=== PATIENT | female | born 1985 | race Caucasian/White ===

== ENCOUNTER → 2020-09-19 16:38 | Outpatient (CLI) | payer OTHER, SELFPAY ==
[2020-09-19 17:57] LABS: hCG Titer Quant., Serum 1784 mIU/mL (1-3)
== END ==
DX: R79.9 Abnormal finding of blood chemistry, unspecified (principal)
CPT/HCPCS: 36415; 84702

== ENCOUNTER 2020-09-20 11:12 | Emergency (ER) | payer OTHER, SELFPAY ==
[2020-09-20 11:14] VITALS: BP 133/76; PULSE 71; RESP 18; TEMP 36.5; O2SAT 100; BMI 20.5
--- NOTE | 2020-09-20 11:33 | US_ITS ---
STUDY: FIRST TRIMESTER OBSTETRICAL ULTRASOUND REASON FOR EXAM: Female, 34 years old VAGINAL BLEEDING X 1 WEEK NOW HAVING CRAMPING, HCG LEVELS HAVE BEEN DROPPING X 1 WEEK. HCG DRAWN YESTERDAY 09/19/20 WERE 1784. HX OF PREVIOUS MISCARRIAGE 3 MONTHS AGO LMP: Unknown. TECHNIQUE: Transvaginal TECHNICAL QUALITY: Adequate. PRIOR ULTRASOUND: 07/28/2020 FINDINGS: Small irregular intrauterine fluid collection measuring about 4 mm in mean sac diameter appears to be mobile . There is a visualized yolk sac. The placenta is non-visualized. There is no demonstrated embryo ( pole). The uterus measures 7.2 x 4.5 x 3.6 cm. There is no demonstrated uterine fibroid. The cervix is closed. The right ovary measures 1. 64.8 x 3.3 cm. There is no right ovarian cyst. There is no visualized right adnexal mass or complex lesion. The left ovary measures 2.7 x 1.6 x 2.1 cm. There is no left ovarian cyst. There is no visualized left adnexal mass or complex lesion. There is a moderate amount of fluid in the cul de sac. US/Transvaginal w/Preg US IMPRESSION: 1. Small irregular intrauterine fluid collection without pole which could represent retained products of or blood clots. Early intrauterine is less likely. Follow-up examination and further correlation with quantitative beta-hCG levels is recommended. 2. Otherwise unremarkable examination. Electronically Signed: Clarke Hamm MD at 13:06 EST Tel , Service support ,
[2020-09-20 11:47] LABS: Mucous, Urine 0 SEEN /hpf (<or=2+); White Blood Cells 0 SEEN /hpf (0-5)
[2020-09-20 11:48] LABS: Color, Urine Yellow (Yellow); Glucose, Dipstick Normal (Normal); Ketone-Dipstick Negative (Negative); Leukocyte Esterase-Dipstick Negative /ul (Negative); Nitrite-Dipstick Negative (Negative); Occult Blood-Urine 250 /ul (Negative); Protein-Dipstick Negative (Negative); Urine Bilirubin Dipstick Negative (Negative); Urine Clarity Clear (Clear); Urine Urobilinogen Normal (Normal); Urine pH 6.5 (5.0 - 8.0)
[2020-09-20 11:54] LABS: Bacteria RARE /hpf (None Seen); Red Blood Cells-Urine 5-10 SEEN /hpf (0-5); Squamous Epithelial Cells - UA 0-5 SEEN /hpf (5-10)
--- NOTE | 2020-09-20 12:26 | ED.VIS.GEN ---
History of Present Illness Chief Complaint: Abd Pain Narrative: Patient presenting secondary to vaginal bleeding and . Patient is a G3, P1 at approximately 6 weeks by dates. Patient states that she has been having pelvic cramping and bleeding over the course of about the last week. Patient has had serial hCGs which from the to the went from 700-1400, but from the to the went from 4137-7623. Patient really denies that there is laterality to her pelvic cramping. Patient states that she is type O+ blood. She did not require RhoGam with her prior miscarriage. 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 Past Medical History - Allergies and Home Meds Allergies/Adverse Reactions: Allergies Sulfa (Sulfonamide Antibiotics) Allergy (Verified 09/20/20 11:14) Rash Primary Care Physician: Care Physician,No Primary [Primary Care Provider] - Prior records reviewed: Yes Past Medical History: None Lives: Spouse/ Significant Other, With Family Smoking Status: Never smoker Alcohol: None Drugs: None Review of Systems General: Denies: Chills, Fever, Sweats Eyes: Denies: Visual changes - bilaterally, Diplopia ENT: Denies: Rhinorrhea, Sore throat Cardiovascular: Denies: Chest pain, Palpitations Respiratory: Denies: Dyspnea, Cough, Dyspnea on exertion Gastrointestinal: Denies: Abdominal pain, Nausea, Vomiting, Diarrhea, Melena, Hematochezia Genitourinary: Reports: - - Vaginal bleeding and pelvic cramping Musculoskeletal: Denies: Back pain, Extremity Pain Skin: Denies: Rash, Wounds Neurological: Denies: Headache, Weakness, Numbness Physical Exam Vital Signs/Narrative: Vital Signs Temp Pulse Resp BP Pulse Ox 09/20/20 11:14 97.7 F L 71 18 133/76 H 100 Inital Vital Signs reviewed: Yes General: Well nourished, Well developed, No Acute Distress Head: Normocephalic, Atraumatic Eyes: Perrl, EOMI ENT: Moist mucous membranes, No rhinorrhea Neck: Supple, Nontender Cardiovascular: Regular rate, Regular rhythm, No murmurs Respiratory: No distress, CTA bilaterally, Chest nontender Abdomen: Soft, Nontender, Nondistended, Normal bowel sounds : - - Pelvic exam deferred Back: Nontender, Normal Inspection Extremities: Nontender, No edema Skin: Normal color, No rash Neurological: Alert, Oriented x3, Cranial nerves II-XII grossly intact, Normal Strength, Normal Sensation Psychological: Normal affect, Normal Mood Diagnostic/Tx/Re-eval Clinical Impression(s) from Imaging Studies Obstetrics Ultrasound 09/20/20 11:33 IMPRESSION: 1. Small irregular intrauterine fluid collection without pole which could represent retained products of or blood clots. Early intrauterine is less likely. Follow-up examination and further correlation with quantitative beta-hCG levels is recommended. 2. Otherwise unremarkable examination. Electronically Signed: Clarke Hamm MD at 13:06 EST Tel , Service support , Laboratory Data 09/20/20 11:40 Urine Color Yellow Urine Clarity Clear Urine pH 6.5 Ur Specific [place] 1.010 Urine Protein Negative Urine Glucose (UA) Normal Urine Ketones Negative Urine Occult Blood 250 H Urine Nitrite Negative Urine Bilirubin Negative Urine Urobilinogen Normal Ur Leukocyte Esterase Negative Urine RBC 5-10 SEEN Urine WBC 0 SEEN Ur Squamous Epith Cells 0-5 SEEN Urine Bacteria RARE Urine Mucus 0 SEEN - Medical Decision Making Patient presented secondary to vaginal bleeding and . Patient had a quantitative hCG performed yesterday that was 1700 this was not repeated today. She reports to be type a positive blood. Patient's urinalysis was obtained and was found to be negative. Pelvic ultrasound shows a small amount of fluid within the patient's uterus, but no evidence of pole, yolk sac, or any adnexal abnormalities. This likely is consistent with an incomplete miscarriage. Patient is from out of [facility], her SCREEN PRINTING SUPERVISOR is in [place]. She will not be returning tomorrow, so I will provide the patient for a prescription for a repeat quantitative hCG to be performed tomorrow. Patient will follow-up with her SCREEN PRINTING SUPERVISOR upon return. She was educated on signs and symptoms which to return. ED Disposition - Plan for ED Patient: Disposition: Home or Assisted Living Diagnosis: Incomplete miscarriage Instructions: ED MISCARRIAGE Incomplete Additional Instructions: Call tomorrow to schedule your blood draw, and follow-up with your SCREEN PRINTING SUPERVISOR upon return home.
== END 2020-09-20 13:52 | disposition home or self-care (01) ==
PROVIDERS: Emergency Provider Emergency Medicine
DX: O03.4 Incomplete spontaneous abortion without complication (principal)
CPT/HCPCS: 76817; 81001; 99282

== ENCOUNTER → 2020-09-21 10:39 | Outpatient (CLI) | payer OTHER, SELFPAY ==
[2020-09-20 11:14] VITALS: BMI 20.5
[2020-09-21 13:10] LABS: hCG Titer Quant., Serum 2115 mIU/mL (1-3)
== END ==
PROVIDERS: Referring Provider Emergency Medicine; Visit Provider Emergency Medicine
DX: O03.4 Incomplete spontaneous abortion without complication (principal)
CPT/HCPCS: 36415; 84702